=== PATIENT | male | born 1975 | race Caucasian/White ===

== ENCOUNTER 2016-10-24 11:35 | Emergency (ER) | payer OTHER ==
[~2016-10-24] VITALS: Ht 162.6 cm; Wt 69.1 kg
[~2016-10-24 11:35] MED LIST: CLC100 PO; [UNRECOGNIZED DRUG - CODE]
[2016-10-24 11:38] VITALS: TEMP 36.8; Ht 162.6 cm; Wt 69.1 kg
[2016-10-24] MEDS ORDERED: SODIUM CHLORIDE 0.9% 1000ML 1,000 ML IV STA (12:19)
[2016-10-24 12:29] LABS: BASO % 0.1 %; BASO ABS # 0.01 K/uL (0-0.2); COMPLETE YES; EOS % 0.1 %; HEMATOCRIT 46.3 % (42-52); IG% 0.2 %; LYMPH % 12.8 %; LYMPH ABS # 1.13 K/uL (1.2-3.4); MEAN CELL VOLUME 82.1 fL (80-100); MEAN CORPUSCULAR HEMOGLOBIN 29.4 pg (25-34); MEAN CORPUSCULAR HGB CONC 35.9 g/dl (32-36); MEAN PLATELET VOLUME 8.8 fL (7.4-10.4); NEUT % 80.8 %; PLATELET COUNT 272 K/uL (130-400); RED BLOOD COUNT 5.64 M/uL (4.7-6.1)
[2016-10-24 12:36] LABS: BLOOD UREA NITROGEN 12 mg/dl (7-18); BUN/CREATININE RATIO 12.1 (10-20); CALCIUM 9.5 mg/dl (8.5-10.1); CARBON DIOXIDE 27 mmol/L (21-32); CHLORIDE 98 mmol/L (98-107); CREATININE 0.95 mg/dl (0.60-1.40); GLUCOSE 99 mg/dl (70-99); POTASSIUM 3.6 mmol/L (3.5-5.1); SODIUM 133 mmol/L (136-145)
[2016-10-24] MEDS ORDERED: ONDANSETRON INJ 2 MG/ML 2 ML VIAL IV STA (12:39)
--- NOTE | 2016-10-24 12:40 | EMERGENCY ROOM VISIT NOTE ---
History Report prepared by Quynh: Vlad Rader Under the Supervision of: Dr. Joel Qureshi M.D. First contact with patient: 12:04 Chief Complaint: CHEST PAIN Stated Complaint: CHEST PAIN, PAIN UNDER LT ARM, STOMACH PAIN Nursing Triage Summary: pt reports L side cp since Mon. with radiation to back and L arm History of Present Illness The patient is a 41 year old male who presents to the Emergency Room with complaints of constant, sharp, left upper quadrant abdominal pain beginning two days ago. He currently rates his discomfort an 8/10 in severity. The patient states that he was working when the pain started, and it has radiated to his left shoulder and the left part of his chest. The patient states that he has been experiencing nausea, vomiting, and black pellet-like stool. He reports that he only vomits after he eats, and it does not alleviated his symptoms. The patient notes that he has been having 10-12 bowel movements a day, and they look like black pellets. He states that he is short of breath. The patient reports that rest is the only thing that makes him feel better. He denies long trips, recent hospitalization, taking medication, and chest pain when breathing. Source of History: patient Onset: two days ago Position: abdomen (LUQ) Symptom Intensity: 8/10 Quality: sharp Timing: constant Modifying Factors (Relieving): rest Associated Symptoms: + chest pain (left), + SOB, + nausea, + vomiting Note: Associated symptoms: left shoulder pain and black pellet-like stool Denies: chest pain when breathing Review of Systems See HPI for pertinent positives & negatives. A total of 10 systems reviewed and were otherwise negative. Past Medical & Surgical Medical Problems: (1) No Known Active Medical Problems Family History Patient reports no known family medical history. Social History Smoking Status: Never Smoker Current/Historical Medications Scheduled Omeprazole (Omeprazole), 1 TAB PO DIRECTED Ondasetron Odt (Zofran Odt), 4-8 MG SL Q6H Scheduled PRN Oxycodone Immediate Rel Tab (Roxicodone Ir), 1-2 TAB PO Q4H PRN for Severe Pain Allergies Coded Allergies: No Known Allergies (Unverified , 10/24/16) Physical Exam Vital Signs Date Time Temp Pulse Resp B/P (MAP) Pulse Ox O2 Delivery O2 Flow Rate FiO2 10/24/16 15:03 88 18 147/92 99 10/24/16 13:56 97 18 140/88 99 Room Air 10/24/16 12:49 86 18 167/107 96 Room Air 10/24/16 12:41 85 10/24/16 11:38 36.8 96 20 159/103 98 Room Air Physical Exam GENERAL: Patient is uncomfortable appearing and in moderate distress. HEENT: No acute trauma, normocephalic atraumatic, mucous membranes moist, no nasal congestion, no scleral icterus. NECK: No stridor, no adenopathy, no meningismus, trachea is midline. LUNGS: No dyspnea. Clear to auscultation and equal bilaterally. No wheeze, no rhonchi. HEART: Regular rate and rhythm. No murmurs, rubs, gallops appreciated. ABDOMEN: Soft, left upper quadrant and left lower quadrant are tender to palpation, bowel sounds positive, no masses appreciated, no peritonitis. BACK: No midline tenderness, no CVA tenderness EXTREMITIES: Normal motion all extremities, no cyanosis, no edema. NEUROLOGIC: Alert and oriented, no acute motor or sensory deficits, no focal weakness, cranial nerves grossly intact. SKIN: Excoriation to the skin, no jaundice, no diaphoresis. Medical Decision & Procedures ER Provider Diagnostic Interpretation: Radiology results and stated below per my review and radiologist interpretation: CHEST ONE VIEW PORTABLE CLINICAL HISTORY: Left chest pain pain COMPARISON STUDY: No previous studies for comparison. FINDINGS: The bones soft tissues and hemidiaphragms are normal. The cardiomediastinal silhouette is normal. The lungs are clear. The pulmonary vasculature is normal. IMPRESSION: Negative chest. The above report was generated using voice recognition software. It may contain grammatical, syntax or spelling errors. Electronically signed by: Dale Hanson M.D. 10/24/2016 12:39 PM Dictated Date/Time: 10/24/2016 12:39 PM (CHEST FOR PE) ANGIO WITH CLINICAL HISTORY: 41 years-old Male presenting with chest pain, pain under left arm, clinical concern for pulmonary embolus. TECHNIQUE: Multidetector CT angiography of the chest was performed after administration of intravenous contrast. 3-D volumetric and maximum intensity projection (MIP) images were subsequently reconstructed for review. IV contrast: 121 mL of Optiray 320. A dose lowering technique was used consistent with the principles of ALARA (as low as reasonably achievable). COMPARISON: None. CT DOSE (mGy.cm): The estimated cumulative dose is 751.05 mGycm. FINDINGS: Leather Cleaner topogram: Unremarkable. Pulmonary vasculature: The study is adequate for assessment of the pulmonary vascular tree. No filling defect within the pulmonary arteries to suggest embolus. Main pulmonary artery not enlarged. No flattening of the interventricular septum. No intracardiac filling defect. Remaining chest: On soft tissue windows, bilateral gynecomastia. Thyroid and thoracic inlet normal. No axillary, supraclavicular, mediastinal, or hilar lymphadenopathy. Three-vessel arch. Mild multichamber enlargement of the heart. No pericardial or pleural effusion. Upper abdomen unremarkable. On lung windows, dependent groundglass opacities at the lung bases, possibly atelectasis. 4 mm solid subpleural pulmonary nodule in the right upper lobe (series 2 image 40). Airways patent. On bone windows, osseous structures normal. IMPRESSION: 1. No evidence of pulmonary embolus. No convincing evidence of acute cardiopulmonary disease. Bibasilar atelectasis suspected. 2. Solid 4 mm pulmonary nodule. Follow-up per Fleischner Society recommendations below. Please refer to below summary of Fleischner Society 2017 recommendations for follow-up of incidental CT nodules (H Sonia et al. Guidelines for management of incidental pulmonary nodules detected on CT images: From the Fleischner Society 2017. Radiology 2017; 284: 228-243.) SOLID NODULES Single nodule; size <6 mm * Low risk patients: No routine follow-up * High risk patients: Optional CT at 12 months Single nodule; size 6-8 mm * Low risk patients: CT at 6-12 months, then consider CT at 18-24 months * High risk patients: CT at 6-12 months, then at 18-24 months Single nodule; size >8 mm * Either low or high risk patients: Considered CT at 3 months, PET/CT, or tissue sampling Multiple nodules; size <6 mm * Low risk patients: No routine follow up * High risk patients: Optional CT at 12 months Multiple nodules; size 6-8 mm * Low risk patients: CT at 3-6 months, then consider CT at 18-24 months * High risk patients: CT at 3-6 months, then at 18-24 months Multiple nodules; size >8 mm * Low risk patients: CT at 3-6 months, then consider at 18-24 months * High risk patients: CT at 3-6 months, then at 18-24 months Note: These guidelines apply to incidental nodules. These guidelines did not apply to patients younger than 35 years, immunocompromised patients, or patients with cancer. * Low risk patients: Minimal or absent history of smoking and/or other known risk factors * High risk patients: History of smoking, exposure to other carcinogens, emphysema, fibrosis, upper lobe location, family history of lung cancer, etc. * If a nodule up to 8 mm is partly solid or is ground glass further follow-up is required after 24 months to exclude possible slow growing adenocarcinoma SUBSOLID NODULES Single ground-glass nodule * Nodule size < 6 mm: No routine follow-up * Nodule size > or = 6 mm: CT at 6-12 months to confirm persistence, then CT every 2 years until 5 years Single part-solid nodule * Nodule size < 6 mm: No routine follow-up * Nodules size > or = 6 mm: CT at 3-6 months to confirm persistence. If unchanged and solid component remains < 6 mm, annual CT should be performed for 5 years Multiple nodules * Nodule size < 6 mm: CT at 3-6 months. If stable, consider CT at 2 and 4 years. * Nodules size > or = 6 mm: CT at 3-6 months. Subsequent management based on the most suspicious nodule(s) Electronically signed by: Adria Adam M.D. 10/24/2016 2:02 PM Dictated Date/Time: 10/24/2016 1:55 PM ABD/PELVIS IV CONTRAST ONLY HISTORY: 41 years-old Male LUQ pain, vomiting COMPARISON: CT 01/28/2009 TECHNIQUE: Multiple axial CT images of the abdomen and pelvis were obtained following the intravenous administration of 121 mL Optiray 320. A dose lowering technique was used consistent with the principals of LINUS. FINDINGS: There is only minimal dependent bibasilar atelectasis. There is no pneumoperitoneum. Inferior cardiac chambers are unremarkable. There is a mildly low attenuating 1.2 x 1.0 cm low attenuating lesion of the subserosal medial left hepatic lobe with apparent discontinuous nodular peripheral enhancement suggesting an angioma. This was also noted on comparison study 01/28/2009. The spleen, gallbladder, pancreas and adrenal glands are within normal limits. Bilateral kidneys are within normal limits. Bilateral ureters and urinary bladder appear to be within normal limits. Prostate again appears mildly heterogeneous and measures within the limits of normal at 4.6 cm transversely. The abdominal aorta is normal in both course and caliber. There is no bulky retroperitoneal adenopathy. Portal vein is patent. There is moderate circumferential wall thickening of the distal esophagus with additional diffuse wall thickening and mucosal hyperemia involving the distal gastric body and antrum. There is no significant surrounding inflammatory changes identified. There is mild distention of the proximal duodenum without evidence of obstruction. Several scattered loops of nondilated fluid-filled small bowel are seen. Scattered noninflamed colonic diverticula are seen. There is collapse of the sigmoid colon without significant inflammatory changes. The appendix is air-filled and noninflamed. Soft tissues are unremarkable. Bones are intact. IMPRESSION: 1. Moderate wall thickening of the distal esophagus, distal gastric body and antrum is suspicious for esophagitis with gastritis. This could be further violated with endoscopy. No evidence of obstruction. 2. Nondilated fluid-filled loops of small bowel throughout the abdomen are nonspecific and may reflect ileus or enteritis without obstruction. 3. Normal appendix. 4. Probable hemangioma of the subserosal medial left hepatic lobe, also noted on study dated 01/28/2009. The above report was generated using voice recognition software. It may contain grammatical, syntax or spelling errors. Electronically signed by: Tonny Kumari M.D. 10/24/2016 2:05 PM Dictated Date/Time: 10/24/2016 1:56 PM Laboratory Results 10/24/16 12:08 Red Blood Count 5.64, Mean Corpuscular Volume 82.1, Mean Corpuscular Hemoglobin 29.4, Mean Corpuscular Hemoglobin Concent 35.9, Mean Platelet Volume 8.8, Neutrophils (%) (Auto) 80.8, Lymphocytes (%) (Auto) 12.8, Monocytes (%) (Auto) 6.0, Eosinophils (%) (Auto) 0.1, Basophils (%) (Auto) 0.1, Neutrophils # (Auto) 7.10, Lymphocytes # (Auto) 1.13, Monocytes # (Auto) 0.53, Eosinophils # (Auto) 0.01, Basophils # (Auto) 0.01 10/24/16 12:08 Test 10/24/16 12:08 10/24/16 13:53 White Blood Count 8.80 K/uL (4.8-10.8) Red Blood Count 5.64 M/uL (4.7-6.1) Hemoglobin 16.6 g/dL (14.0-18.0) Hematocrit 46.3 % (42-52) Mean Corpuscular Volume 82.1 fL (80-100) Mean Corpuscular Hemoglobin 29.4 pg (25-34) Mean Corpuscular Hemoglobin Concent 35.9 g/dl (32-36) Platelet Count 272 K/uL (130-400) Mean Platelet Volume 8.8 fL (7.4-10.4) Neutrophils (%) (Auto) 80.8 % Lymphocytes (%) (Auto) 12.8 % Monocytes (%) (Auto) 6.0 % Eosinophils (%) (Auto) 0.1 % Basophils (%) (Auto) 0.1 % Neutrophils # (Auto) 7.10 K/uL (1.4-6.5) Lymphocytes # (Auto) 1.13 K/uL (1.2-3.4) Monocytes # (Auto) 0.53 K/uL (0.11-0.59) Eosinophils # (Auto) 0.01 K/uL (0-0.5) Basophils # (Auto) 0.01 K/uL (0-0.2) RDW Standard Deviation 36.8 fL (36.4-46.3) RDW Coefficient of Variation 12.3 % (11.5-14.5) Immature Granulocyte % (Auto) 0.2 % Immature Granulocyte # (Auto) 0.02 K/uL (0.00-0.02) D-Dimer 610 ug/L FEU (0-500) Anion Gap 8.0 mmol/L (3-11) Est Creatinine Clear Calc Drug Dose 87.5 ml/min Estimated GFR () 116.4 Estimated GFR (Non- 100.4 BUN/Creatinine Ratio 12.1 (10-20) Calcium Level 9.5 mg/dl (8.5-10.1) Total Bilirubin 1.9 mg/dl (0.2-1) Direct Bilirubin 0.3 mg/dl (0-0.2) Aspartate Amino Transf (AST/SGOT) 13 U/L (15-37) Alanine Aminotransferase (ALT/SGPT) 38 U/L (12-78) Alkaline Phosphatase 80 U/L (45-117) Troponin I < 0.015 ng/ml (0-0.045) Total Protein 8.6 gm/dl (6.4-8.2) Albumin 4.2 gm/dl (3.4-5.0) Lipase 167 U/L (73-393) Urine Color YELLOW Urine Appearance CLEAR (CLEAR) Urine pH 7.0 (4.5-7.5) Urine Specific [place] 1.017 (1.000-1.030) Urine Protein NEG (NEG) Urine Glucose (UA) NEG (NEG) Urine Ketones 2+ (NEG) Urine Occult Blood TRACE (NEG) Urine Nitrite NEG (NEG) Urine Bilirubin NEG (NEG) Urine Urobilinogen NEG (NEG) Urine Leukocyte Esterase NEG (NEG) Urine WBC (Auto) 0 /hpf (0-5) Urine RBC (Auto) 0-4 /hpf (0-4) Urine Hyaline Casts (Auto) 0 /lpf (0-5) Urine Epithelial Cells (Auto) 0-5 /lpf (0-5) Urine Bacteria (Auto) NEG (NEG) Laboratory results as reviewed by me. Medications Administered Medications (Trade) Dose Ordered Sig/Kevin Route Start Time Stop Time Status Last Admin Dose Admin Sodium Chloride 1,000 ml @ 999 mls/hr Q1H1M STAT IV 10/24/16 12:19 10/24/16 13:19 DC 10/24/16 12:37 999 MLS/HR Ondansetron HCl (Zofran Inj) 4 mg NOW STAT IV 10/24/16 12:39 10/24/16 12:40 DC 10/24/16 12:48 4 MG Hydromorphone HCl (Dilaudid Inj) 1 mg NOW STAT IV 10/24/16 13:12 10/24/16 13:13 DC 10/24/16 13:32 1 MG Ranitidine HCl (zANTac SYRUP) 150 mg NOW ONCE PO 10/24/16 14:45 10/24/16 14:46 DC 10/24/16 14:55 150 MG Al Hydroxide/Mg Hydroxide (Maalox Susp) 30 ml STK-MED ONCE .ROUTE 10/24/16 14:40 10/24/16 14:41 DC 7/26/17 14:55 30 ML Lidocaine HCl (Viscous Lidocaine 2% Soln) 20 ml STK-MED ONCE .ROUTE 10/24/16 14:40 10/24/16 14:41 DC 10/24/16 14:55 20 ML ECG Indication: chest pain Rate (beats per minute): 74 Rhythm: normal sinus Findings: no acute ischemic change, no ectopy ED Course 1129: The patient was evaluated in room B03B. A complete history and physical exam was performed. 1219: Ordered Sodium Chloride 1000 ml @ 999 mls/hr IV 1237: The patient is currently vomiting. 1239: Ordered Zofran Inj 4mg IV 1312: Ordered Dilaudid Inj 1 mg IV 1316: I updated the patient of his lab findings. I discussed with him the need for a CT due to his elevated d-dimer. After explaining the risks and benefits of the CT scan, he consented. After palpating his calves again, there is no tenderness. 1409: I reevaluated the patient, and he is no longer nauseous. His pain is much better, and he is okay with waiting on GI to be evaluated. 1417: I discussed the patients case with Dr. Thurston, GI. She suggested admission to the hospital for possible endoscopy, IV PPI, and possible MG tube. However if patient would like to be discharged he should be discharged on PPI. 1419: Reevaluated the patient. I had a prolonged discussion of options, and he does not wish to be admitted to the hospital. Discussed results and discharge instructions: he verbalized understanding and agreement. The patient is ready for discharge when he receives his medication. 1440: Ordered Lidocaine HCl 20ml .ROUTE, Maalox Susp 30ml .ROUTE 1445: Ordered Ranitidine HCl 150mg PO Medical Decision Differential: Cholecystitis, Gallbladder disfunction, Hepatic Disfunction, Gastritis/PUD, Pancreatitis, ACS, PE, Aortic Pathology, amongst other pathologies entertained. Very pleasant 41 yr old Sabian[employer] male with LUQ pain radiating to left chest and left shoulder. Worse with LUQ palpation and clearly uncomfortable with deep inspiration. Periodic vomiting. Given Zofran/Dilaudid/Nss with much improvement. Lab with elevated Dimer thus given symptoms felt that CT PE indicated, however as getting dye load, clear LUQ TTP and vomiting felt that must included abdominal component on CT. CT reveals esophagitis, gastritis and ileus/enteritis. I reviewed this with GI. I had prolonged discussion with patient regarding options and he very much prefers outpatient management. I made clear that I felt inpatient would be usual approach. We will treat aggressively with BID Omeprazole, Anti-emetics and PRN pain medications. Stressed low acid diet and need to RTED immediately if worsening. Advised Endoscopy as outpatient which he states he will discuss with his PCP. Consults Time Called: 1407 Consulting Physician: JASMINA Díaz Returned Call: [phone] I discussed the patients case with JASMINA Díaz. She suggested admission to the hospital for possible endoscopy, IV PPI, and possible MG tube. However if patient would like to be discharged he should be discharged on PPI. Impression Primary Impression: Esophagitis Additional Impressions: Gastritis Ileus Scribe Attestation The scribe's documentation has been prepared under my direction and personally reviewed by me in its entirety. I confirm that the note above accurately reflects all work, treatment, procedures, and medical decision making performed by me. Departure Information Dispostion Home / Self-Care Prescriptions Oxycodone Immediate Rel Tab (ROXICODONE IR) 5 Mg Tab 1-2 TAB PO Q4H Y for Severe Pain, #10 TAB Prov: Joel Qureshi M.D. 10/24/16 Ondasetron Odt (ZOFRAN ODT) 4 Mg Tab 4-8 MG SL Q6H for Nausea, #20 TAB Prov: Joel Qureshi M.D. 10/24/16 Omeprazole (OMEPRAZOLE) 20 Mg Tab 1 TAB PO DIRECTED, #50 TAB 1 Refill Take one tablet twice daily for the next 10 days, then once daily. Prov: Joel Qureshi M.D. 10/24/16 Referrals Eddie García M.D. (PCP) Eliot Aparicio D.O. Forms HOME CARE DOCUMENTATION FORM, IMPORTANT VISIT INFORMATION Patient Instructions ED Gastritis, My [facility] Additional Instructions You have received a narcotic pain medication prescription. These medications may cause drowsiness and should not be used with other sedative medications. Do not operate machinery, drink alcohol, perform dangerous activities, nor make important decisions after taking these medications. senior living use or inappropriate use may lead to addiction. Problem Qualifiers
[2016-10-24 12:41] LABS: ALKALINE PHOSPHATASE 80 U/L (45-117); ALT/SGPT 38 U/L (12-78); AST/SGOT 13 U/L (15-37)
[2016-10-24] MEDS ORDERED: HYDROmorphone INJ 1 MG/ML SYR IV STA (13:12)
[2016-10-24] MEDS ORDERED: OPTIRAY 320 IV PRN (13:15)
--- NOTE | 2016-10-24 14:03 | DIAGNOSTIC IMAGING REPORT ---
(CHEST FOR PE) ANGIO WITH CLINICAL HISTORY: 41 years-old Male presenting with chest pain, pain under left arm, clinical concern for pulmonary embolus. TECHNIQUE: Multidetector CT angiography of the chest was performed after administration of intravenous contrast. 3-D volumetric and maximum intensity projection (MIP) images were subsequently reconstructed for review. IV contrast: 121 mL of Optiray 320. A dose lowering technique was used consistent with the principles of ALARA (as low as reasonably achievable). COMPARISON: None. CT DOSE (mGy.cm): The estimated cumulative dose is 751.05 mGycm. FINDINGS: Proctologist topogram: Unremarkable. Pulmonary vasculature: The study is adequate for assessment of the pulmonary vascular tree. No filling defect within the pulmonary arteries to suggest embolus. Main pulmonary artery not enlarged. No flattening of the interventricular septum. No intracardiac filling defect. Remaining chest: On soft tissue windows, bilateral gynecomastia. Thyroid and thoracic inlet normal. No axillary, supraclavicular, mediastinal, or hilar lymphadenopathy. Three-vessel arch. Mild multichamber enlargement of the heart. No pericardial or pleural effusion. Upper abdomen unremarkable. On lung windows, dependent groundglass opacities at the lung bases, possibly atelectasis. 4 mm solid subpleural pulmonary nodule in the right upper lobe (series 2 image 40). Airways patent. On bone windows, osseous structures normal. IMPRESSION: 1. No evidence of pulmonary embolus. No convincing evidence of acute cardiopulmonary disease. Bibasilar atelectasis suspected. 2. Solid 4 mm pulmonary nodule. Follow-up per Fleischner Society recommendations below. Please refer to below summary of Fleischner Society 2017 recommendations for follow-up of incidental CT nodules (H Sonia et al. Guidelines for management of incidental pulmonary nodules detected on CT images: From the Fleischner Society 2017. Radiology 2017; 284: 228-243.) SOLID NODULES Single nodule; size <6 mm * Low risk patients: No routine follow-up * High risk patients: Optional CT at 12 months Single nodule; size 6-8 mm * Low risk patients: CT at 6-12 months, then consider CT at 18-24 months * High risk patients: CT at 6-12 months, then at 18-24 months Single nodule; size >8 mm * Either low or high risk patients: Considered CT at 3 months, PET/CT, or tissue sampling Multiple nodules; size <6 mm * Low risk patients: No routine follow up * High risk patients: Optional CT at 12 months Multiple nodules; size 6-8 mm * Low risk patients: CT at 3-6 months, then consider CT at 18-24 months * High risk patients: CT at 3-6 months, then at 18-24 months Multiple nodules; size >8 mm * Low risk patients: CT at 3-6 months, then consider at 18-24 months * High risk patients: CT at 3-6 months, then at 18-24 months Note: These guidelines apply to incidental nodules. These guidelines did not apply to patients younger than 35 years, immunocompromised patients, or patients with cancer. * Low risk patients: Minimal or absent history of smoking and/or other known risk factors * High risk patients: History of smoking, exposure to other carcinogens, emphysema, fibrosis, upper lobe location, family history of lung cancer, etc. * If a nodule up to 8 mm is partly solid or is ground glass further follow-up is required after 24 months to exclude possible slow growing adenocarcinoma SUBSOLID NODULES Single ground-glass nodule * Nodule size < 6 mm: No routine follow-up * Nodule size > or = 6 mm: CT at 6-12 months to confirm persistence, then CT every 2 years until 5 years Single part-solid nodule * Nodule size < 6 mm: No routine follow-up * Nodules size > or = 6 mm: CT at 3-6 months to confirm persistence. If unchanged and solid component remains < 6 mm, annual CT should be performed for 5 years Multiple nodules * Nodule size < 6 mm: CT at 3-6 months. If stable, consider CT at 2 and 4 years. * Nodules size > or = 6 mm: CT at 3-6 months. Subsequent management based on the most suspicious nodule(s) Electronically signed by: Adria Adam M.D. 10/24/2016 2:02 PM Dictated Date/Time: 10/24/2016 1:55 PM
--- NOTE | 2016-10-24 14:07 | DIAGNOSTIC IMAGING REPORT ---
ABD/PELVIS IV CONTRAST ONLY HISTORY: 41 years-old Male LUQ pain, vomiting COMPARISON: CT 01/28/2009 TECHNIQUE: Multiple axial CT images of the abdomen and pelvis were obtained following the intravenous administration of 121 mL Optiray 320. A dose lowering technique was used consistent with the principals of LINUS. FINDINGS: There is only minimal dependent bibasilar atelectasis. There is no pneumoperitoneum. Inferior cardiac chambers are unremarkable. There is a mildly low attenuating 1.2 x 1.0 cm low attenuating lesion of the subserosal medial left hepatic lobe with apparent discontinuous nodular peripheral enhancement suggesting an angioma. This was also noted on comparison study 01/28/2009. The spleen, gallbladder, pancreas and adrenal glands are within normal limits. Bilateral kidneys are within normal limits. Bilateral ureters and urinary bladder appear to be within normal limits. Prostate again appears mildly heterogeneous and measures within the limits of normal at 4.6 cm transversely. The abdominal aorta is normal in both course and caliber. There is no bulky retroperitoneal adenopathy. Portal vein is patent. There is moderate circumferential wall thickening of the distal esophagus with additional diffuse wall thickening and mucosal hyperemia involving the distal gastric body and antrum. There is no significant surrounding inflammatory changes identified. There is mild distention of the proximal duodenum without evidence of obstruction. Several scattered loops of nondilated fluid-filled small bowel are seen. Scattered noninflamed colonic diverticula are seen. There is collapse of the sigmoid colon without significant inflammatory changes. The appendix is air-filled and noninflamed. Soft tissues are unremarkable. Bones are intact. IMPRESSION: 1. Moderate wall thickening of the distal esophagus, distal gastric body and antrum is suspicious for esophagitis with gastritis. This could be further violated with endoscopy. No evidence of obstruction. 2. Nondilated fluid-filled loops of small bowel throughout the abdomen are nonspecific and may reflect ileus or enteritis without obstruction. 3. Normal appendix. 4. Probable hemangioma of the subserosal medial left hepatic lobe, also noted on study dated 01/28/2009. The above report was generated using voice recognition software. It may contain grammatical, syntax or spelling errors. Electronically signed by: Tonny Kumari M.D. 10/24/2016 2:05 PM Dictated Date/Time: 10/24/2016 1:56 PM
[2016-10-24 14:26] LABS: MANUAL MICROSCOPIC REQUIRED? NO; REVIEW REQ? NO; URINE APPEARANCE CLEAR (CLEAR); URINE BILIRUBIN NEG (NEG); URINE COLOR YELLOW; URINE EPITHELIAL CELL AUTO 0-5 /lpf (0-5); URINE NITRITE NEG (NEG); URINE SPECIFIC GRAVITY 1.017 (1.000-1.030); UROBILINOGEN NEG (NEG); ZZUR CULT IF INDIC CLEAN CATCH NO
[2016-10-24] MEDS ORDERED: GI COCKTAIL PO STA (14:33)
[2016-10-24] MEDS ORDERED: OXYC1TAB3 PO (14:39)
[2016-10-24] MEDS ORDERED: ONDA4TAB10 SL (14:39)
[2016-10-24] MEDS ORDERED: OMEP20TA PO (14:39)
[2016-10-24] MEDS ORDERED: LIDOCAINE HCL 2% VISC SOLN 20 ML UDC ONE (14:40)
[2016-10-24] MEDS ORDERED: ALUMINUM/MAGNESIUM SUSP 30 ML UDC ONE (14:40)
[2016-10-24] MEDS ORDERED: RANITIDINE HCL SYRUP 150 MG/10 ML UDC PO ONE (14:45)
[2016-10-24 15:03] VITALS: BP 147/92; PULSE 88; O2SAT 99
== END 2016-10-24 15:04 | disposition home or self-care (01) ==
LOC: C.EDB 11:38
DX: K20.9 Esophagitis, unspecified (principal); K29.70 Gastritis, unspecified, without bleeding; K56.7 Ileus, unspecified; Z79.899 Other long term (current) drug therapy

== ENCOUNTER → 2016-11-09 | Day surgery (SDC) | payer OTHER ==
[~2016-11-09] VITALS: Ht 165.1 cm; Wt 70.4 kg
[~2016-11-09] MED LIST changes: -CLC100 PO; +FENTANYL CITRATE INJ 50 MCG/1 ML 2 ML VIAL ONE; +LIDOCAINE HCL 2% 2 ML VIAL (20MG/ML) ONE; +MIDAZOLAM HCL 1 MG/ML 2ML VIAL ONE; +OMEP20TA PO; +ONDA4TAB10 SL; +OXYC1TAB3 PO; +PROPOFOL IV EMULSION 10 MG/ML 20 ML VIAL IV ONE; +SODIUM CHLORIDE 0.9% 500ML 500 ML IV ONE; -[UNRECOGNIZED DRUG - CODE]
[2016-11-09 08:09] VITALS: Ht 165.1 cm; Wt 70.4 kg
--- NOTE | 2016-11-09 08:36 | Endo History and Physical ---
History & Physical Date of Service: Nov 09, 2016. Chief Complaint: REFLUX, INFLAMMATION IN STOMACH Referring Physician: DR RIVERA History of Present Illness 41 yo CM who presents for EGD secondary to GERD and gastritis. Past Surgical History Hx Cardiac Surgery: No Hx Internal Defibrillator: No Hx Pacemaker: No Hx Abdominal Surgery: No Hx of Implantable Prosthesis: No Hx Post-Op Nausea and Vomiting: No Hx Cancer Surgery: No Hx Thoracic Surgery: No Hx Orthopedic: Yes (RIGHT KNEE) Hx Urinary Tract Surgery: No Social History Smoking Status: Never Smoker Hx Substance Use: No Hx Alcohol Use: No Allergies Coded Allergies: No Known Allergies (Unverified , 11/09/16) Current Medications Reported Home Medications Medications Dose Route/Sig Max Daily Dose Days Date Category Dose Instructions Omeprazole 20 Mg Tab 1 Tab PO DIRECTED 10/24/16 Rx Take one tablet twice daily for the next 10 days, then once daily. Vital Signs Weight (Kilograms): 70.4 Height (Feet): 5 Height (Inches): 5 Date Time Temp Pulse Resp B/P (MAP) Pulse Ox O2 Delivery O2 Flow Rate FiO2 11/09/16 08:21 36.6 68 16 131/82 (98) 100 Room Air Physical Exam General Appearance: WD/WN, no apparent distress Respiratory/Chest: Auscultation: breath sounds normal Cardiovascular: Heart Auscultation: RRR Abdomen: Bowel Sounds: normal Inspection & Palpation: soft, non-distended, no tenderness, guarding & rebound Assessment and Plan Assessment: 41 yo CM who presents for EGD secondary to GERD and gastritis. Plan: Proceed with EGD.
--- NOTE | 2016-11-09 08:55 | Discharge Instructions ---
Endoscopy Patient Instructions Date / Procedure(s) Performed Nov 09, 2016. EGD Allergy Information Coded Allergies: No Known Allergies (Unverified , 11/09/16) Discharge Date / Findings Nov 09, 2016. Gastric ulcers s/p biopsies of gastric antrum to evaluate for H. pylori Hiatal hernia Schatzki's ring s/p dilation to 20mm Medication Instructions OK to resume all medications today as prescribed Avoid NSAID's as they may cause worsening symptoms. OK to use Tylenol for pain control Reported Home Medications Medications Dose Route/Sig Max Daily Dose Days Date Category Dose Instructions Omeprazole 20 Mg Tab 1 Tab PO DIRECTED 10/24/16 Rx Take one tablet twice daily for the next 10 days, then once daily. Provider Instructions Activity Restrictions - No exercising or heavy lifting for 24 hours. - Do not drink alcohol the day of the procedure. - Do not drive a car or operate machinery until the day after the procedure. - Do not make any important decisions or sign important papers in 24 hours after the procedure. Following Day: - Return to full activity which may include returning to work/school. Diet Start your diet with liquids and light foods (jello, soup, juice, toast). Then eat your usual diet if not nauseated. Treatment For Common After Affects For mild abdominal pain, bloating, or excessive gas: - Rest - Eat lightly - Lie on right side Follow-Up Information Follow-up with DR RIVERA as scheduled Anesthesia Information What You Should Know You have had a procedure that required some medicine to reduce anxiety and discomfort. This treatment is called moderate sedation. After receiving the treatment, you may be sleepy, but you will be able to breathe on your own. The effects of the treatment may last for several hours. Follow these instructions along with Activity/Diet recommendations noted above: * Do NOT do anything where dizziness or clumsiness would be dangerous. * Rest quietly at home today, then you can be up and about tomorrow. * Have a responsible person stay with you the rest of today. * You may have had an I.V. today. If so, you may take the dressing off later today. Recommendations Call your doctor if: * Trouble breathing * Continuous vomiting for more than 24 hours * Temperature above 101 degrees * Severe abdominal pain or bloating * Pain not relieved by pain medicine ordered * There is increased drainage or redness from any incision * A large amount of rectal bleeding greater than 2-3 tablespoons. (If you had a polyp/s removed or have hemorrhoids, a small amount of blood - from the rectum is to be expected.) * You have any unanswered questions or concerns. IN THE EVENT OF A SERIOUS EMERGENCY, GO TO THE NEAREST EMERGENCY ROOM Your discharge instructions were prepared by provider Eliot Aparicio. Patient Instructions Signature Page Alejandro Benjamin Patient (or Guardian) Signature/Date: I have read and understand the instructions given to me by my caregivers. Caregiver/RN/Doctor Signature/Date: The above-named patient and/or guardian has received patient instructions on this date. + Original Patient Signature Page (only) stays with chart. Please make copy for patient.
--- NOTE | 2016-11-09 09:05 | GI REPORT ---
Procedure Date: 11/09/2016 8:19 AM Procedure: Upper GI endoscopy Indications: Epigastric abdominal pain, Esophageal reflux Medicines: Monitored Anesthesia Care Complications: No immediate complications. Estimated Blood Loss: Estimated blood loss: none. Procedure: Pre-Anesthesia Assessment: - Prior to the procedure, a History and Physical was performed, and patient medications and allergies were reviewed. The patient's tolerance of previous anesthesia was also reviewed. The risks and benefits of the procedure and the sedation options and risks were discussed with the patient. All questions were answered, and informed consent was obtained. Prior Anticoagulants: The patient has taken no previous anticoagulant or antiplatelet agents. ASA Grade Assessment: II - A patient with mild systemic disease. After reviewing the risks and benefits, the patient was deemed in satisfactory condition to undergo the procedure. After obtaining informed consent, the endoscope was passed under direct vision. Throughout the procedure, the patient's blood pressure, pulse, and oxygen saturations were monitored continuously. The scope was introduced through the mouth, and advanced to the second part of duodenum. The upper GI endoscopy was accomplished without difficulty. The patient tolerated the procedure well. Findings: A mild Schatzki ring (acquired) was found at the gastroesophageal junction. A TTS dilator was passed through the scope. Dilation with an 18-19-20 mm balloon (to a maximum balloon size of 20 mm) dilator was performed. The dilation site was examined and showed no change. A small hiatus hernia was present. Four non-bleeding cratered gastric ulcers with no stigmata of bleeding were found in the gastric antrum. The largest lesion was 10 mm in largest dimension. Biopsies were taken with a cold forceps for Helicobacter pylori testing. The examined duodenum was normal. Impression: - Mild Schatzki ring. Dilated. - Small hiatus hernia. - Non-bleeding gastric ulcers with no stigmata of bleeding. Biopsied. - Normal examined duodenum. Recommendation: - Resume previous diet. - Continue present medications. - Await pathology results. - Return to primary care physician as previously scheduled. Eliot Aparicio DO 11/09/2016 9:05:46 AM This report has been signed electronically. Note Initiated On: 11/09/2016 8:19 AM I attest to the content of the Intraoperative Record and orders documented therein, exceptions below
--- NOTE | 2016-11-09 09:25 | Anesthesiology Progress Note ---
Anesthesia Post Op Note Date & Time Nov 09, 2016 at 09:25 Vital Signs Pain Intensity: 4 Vital Signs Past 12 Hours Date Time Temp Pulse Resp B/P (MAP) Pulse Ox O2 Delivery O2 Flow Rate FiO2 11/09/16 09:15 66 20 127/79 (95) 98 Room Air 11/09/16 09:00 80 18 117/70 (86) 98 Room Air 11/09/16 08:21 36.6 68 16 131/82 (98) 100 Room Air Notes Mental Status: alert / awake / arousable, participated in evaluation Pt Amnestic to Procedure: Yes Nausea / Vomiting: adequately controlled Pain: adequately controlled Airway Patency, RR, SpO2: stable & adequate BP & HR: stable & adequate Hydration State: stable & adequate Anesthetic Complications: no major complications apparent
[2016-11-09 09:30] VITALS: BP 120/83; PULSE 79; O2SAT 97
== END | disposition home or self-care (01) ==
LOC: C.GI 07:50
PROVIDERS: ATTEND Internal Medicine
DX: K22.2 Esophageal obstruction (principal); K29.60 Other gastritis without bleeding; K21.9 Gastro-esophageal reflux disease without esophagitis; K44.9 Diaphragmatic hernia without obstruction or gangrene; K25.9 Gastric ulcer, unspecified as acute or chronic, without hemorrhage or perforation

== ENCOUNTER 2017-02-25 09:35 | Emergency (ER) | payer OTHER ==
[~2017-02-25] VITALS: Ht 165.1 cm; Wt 70.0 kg
[~2017-02-25 09:35] MED LIST changes: -FENTANYL CITRATE INJ 50 MCG/1 ML 2 ML VIAL ONE; -LIDOCAINE HCL 2% 2 ML VIAL (20MG/ML) ONE; -MIDAZOLAM HCL 1 MG/ML 2ML VIAL ONE; -ONDA4TAB10 SL; -OXYC1TAB3 PO; -PROPOFOL IV EMULSION 10 MG/ML 20 ML VIAL IV ONE; -SODIUM CHLORIDE 0.9% 500ML 500 ML IV ONE
[2017-02-25 09:40] VITALS: Ht 165.1 cm; Wt 70.0 kg
[2017-02-25] MEDS ORDERED: MoRPHine SULFATE 10 MG/ML CARP/VIAL IV STA ×3 (10:03→13:08)
[2017-02-25] MEDS ORDERED: ONDANSETRON INJ 2 MG/ML 2 ML VIAL IV STA (10:03)
--- NOTE | 2017-02-25 11:06 | DIAGNOSTIC IMAGING REPORT ---
CT SCAN OF THE CERVICAL SPINE CLINICAL HISTORY: Fall with neck pain. COMPARISON STUDY: No priors. TECHNIQUE: CT scan of the cervical spine is performed from the skull base to the upper thoracic spine. Images are reviewed in the axial, sagittal, and coronal planes. IV contrast was not administered for this examination. A dose lowering technique was utilized adhering to the principles of ALARA. CT DOSE: 229.66 mGy.cm FINDINGS: Skeletal structures: The skeletal structures are well mineralized. There is no evidence of fracture or subluxation involving the cervical spine. Vertebral body height and alignment are maintained. The odontoid process and lateral masses are intact. The atlantoaxial articulation is preserved noting mild productive degenerative change. The spinous processes appear intact. Intervertebral discs: Mild disc space narrowing seen at C5-C6. The remaining disc spaces are well maintained. Central canal: A posterior disc osteophyte complex at C5-C6 may contribute to mild acquired compromise of the central canal. Soft tissues: The prevertebral and paraspinous soft tissues are within normal limits. Cerumen is noted in the left external auditory canal. Subcutaneous soft tissue edema is noted in the dorsal aspect of the neck. Calvarium: The visualized calvarium at the skull base appears intact. Brain parenchyma: Right temporal lobe encephalomalacia is suggested. Sinuses and mastoids: The visualized paranasal sinuses are clear. The mastoid air cells are well pneumatized. Lung apices: Clear as visualized. IMPRESSION: 1. There is no evidence of fracture or subluxation involving the cervical spine. 2. Subcutaneous edema is suggested in the dorsal soft tissues. 3. Right temporal lobe encephalomalacia is suggested and only partially visualized. This is likely related to a remote insult. Correlation with the patient's medical history will be required. Electronically signed by: Jb Rajput M.D. 02/25/2017 11:05 AM Dictated Date/Time: 02/25/2017 11:01 AM
--- NOTE | 2017-02-25 11:43 | DIAGNOSTIC IMAGING REPORT ---
R HIP UNILATERAL 2 VIEWS CLINICAL HISTORY: fall; R hip pain trauma. Pain. COMPARISON: None. DISCUSSION: The bones and joint spaces appear intact. There is no evidence of fracture, dislocation or bony disease. Mild degenerative change. No evidence for acetabular protrusion. IMPRESSION: Mild degenerative change. No acute process. The above report was generated using voice recognition software. It may contain grammatical, syntax or spelling errors. Electronically signed by: Dlae Hanson M.D. 02/25/2017 11:41 AM Dictated Date/Time: 02/25/2017 11:40 AM
--- NOTE | 2017-02-25 11:48 | DIAGNOSTIC IMAGING REPORT ---
R ELBOW MIN 3 VIEWS ROUTINE, R SHOULDER MIN 2 VIEWS ROUTINE HISTORY: 41 years-old Male fall; R elbow pain acute right shoulder and elbow pain status post fall COMPARISON: Chest radiograph 10/24/2016 TECHNIQUE: 3 views of the right elbow and 3 views of the right shoulder FINDINGS: ELBOW: Intravenous catheter is noted within the region of the antecubital fossa. There is no acute fracture, dislocation or significant degenerative changes. No elbow joint effusion identified. Radial head appears intact. SHOULDER: There is anteroinferior dislocation of the humeral head in relation to glenoid fossa is present within a subcoracoid location. Corticated 9 x 4 mm bone fragment is noted adjacent to the posterior superior glenoid. No definite acute fracture identified. IMPRESSION: 1. Anteroinferior dislocation of the right humeral head without definite acute shoulder fracture identified. Follow-up radiograph after reduction recommended. 2. 9 x 4 mm corticated bone fragment adjacent to the posterior superior glenoid suggests accessory ossicle or remote fracture fragment. 3. No acute fracture or dislocation of the right elbow. The above report was generated using voice recognition software. It may contain grammatical, syntax or spelling errors. Electronically signed by: Tonny Kumari M.D. 02/25/2017 11:46 AM Dictated Date/Time: 02/25/2017 11:42 AM
[2017-02-25] MEDS ORDERED: ONDANSETRON INJ 2 MG/ML 2 ML VIAL ONE (12:49)
[2017-02-25] MEDS ORDERED: NURSING VERBAL MED ORDER ONE (13:00)
[2017-02-25] MEDS ORDERED: PROPOFOL IV EMULSION 10 MG/ML 20 ML VIAL IV STA ×2 (14:12→14:41)
[2017-02-25 14:17] VITALS: BP 153/100; PULSE 97; O2SAT 100
--- NOTE | 2017-02-25 14:30 | EMERGENCY ROOM VISIT NOTE ---
Pre-Mod Sedation Assessment General Date of Moderate Sedation: Feb 25, 2017. Vital Signs: Vital Signs Past 12 Hours Date Time Temp Pulse Resp B/P (MAP) Pulse Ox O2 Delivery O2 Flow Rate FiO2 02/25/17 14:17 97 16 153/100 100 Nasal Cannula 2.0 02/25/17 13:10 98 12 96 02/25/17 13:05 23 02/25/17 13:00 15 02/25/17 12:55 107 25 02/25/17 12:50 102 16 02/25/17 12:49 97 02/25/17 12:14 87 16 149/91 99 Room Air 02/25/17 11:38 86 16 173/105 97 Room Air 02/25/17 09:40 37.3 95 18 175/99 99 Room Air Review Cardiovascular: regular rate, rhythm Abdomen: normal bowel sounds Lungs: lungs clear, normal breath sounds Airway Class: I Pre-Sedation Airway Assessment Oral Cavity: WNL Short Thick Neck: No Hx of Sleep Apnea: No Smoking Status: Never Smoker Mallampati Classification: Class I ASA Classification: Class I Notes The planned sedation has been discussed with the patient and consent obtained. I have identified the patient, determined the appropriateness of sedation and have assessed the patient immediately prior to the procedure. All medicine(s) and interventions are by my order.
[2017-02-25 14:33] VITALS: BP 156/108; PULSE 80; O2SAT 100
--- NOTE | 2017-02-25 14:49 | EMERGENCY ROOM VISIT NOTE ---
ED Visit Note First contact with patient: 09:44 41-year-old male who fell out of a tree stand injuring his right shoulder was fully evaluated by Goldy Lopez PA-C. Please see his note. Patient had multiple other possible injuries multiple imaging was performed. The patient was found to have a right shoulder dislocation. The patient did require reduction. Initial attempts at reducing the shoulder with morphine was unsuccessful. The patient remained awake and alert the entire time. We also attempted to reduce the shoulder using weights while the patient was on his abdomen. That also was unsuccessful. Conscious sedation was therefore indicated. The patient had a pre-sedation exam. Indication shoulder dislocation Total time: 11 minutes. Written consent was obtained after the risks and benefits were explained to the patient, including, but not limited to aspiration, allergic reaction, breathing difficulties, cardiac complications, vomiting, pain, event recall, bleeding, and /or infection. Pre-sedation examination and paperwork completed. The patient was on 100% oxygen via NRB prior to the procedure. Continous end tidal CO2 monitoring, pulse oximetry, and cardiac monitoring were utilized. Suction, airway equipment, medications, respiratory equipment, and appropriate personnel were prepared prior to the initiation of the procedure. A time out was taken. Sedation was achieved utilizing increments of propofol. After I observed the patient had reached the appropriate level of sedation the main procedure was performed without complication. Sedation was discontinued and the monitoring continued. The patient recovered quickly from the effects of the medication without complication or adverse event. Goldy Lopez performed the reduction while I monitored the conscious sedation. The shoulder was put back in place. The patient had no complications. Follow- up x-ray was obtained.
[2017-02-25 14:59] VITALS: BP 150/103; PULSE 100; TEMP 36.6; O2SAT 99
--- NOTE | 2017-02-25 15:05 | DIAGNOSTIC IMAGING REPORT ---
R SHOULDER MIN 2 VIEWS ROUTINE HISTORY: 41 years-old Male post reduction status post reduction of the right shoulder COMPARISON: Right shoulder radiographs 02/25/2017 at 11:23 AM TECHNIQUE: 2 views of the right shoulder were obtained status post reduction FINDINGS: There is an acute cortical impaction fracture of the posterior aspect greater tuberosity compatible with Hill Sachs deformity. No evidence of associated bony Bankart deformity at this time. 9 x 4 mm corticated bone fragment is again seen adjacent to the superior glenoid suggesting accessory ossicle or remote fracture fragment. Mild soft tissue swelling seen about the right shoulder. There is improved alignment status post reduction. IMPRESSION: 1. Satisfactory alignment status post reduction. 2. 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 The above report was generated using voice recognition software. It may contain grammatical, syntax or spelling errors. Electronically signed by: Tonny Kumari M.D. 02/25/2017 3:04 PM Dictated Date/Time: 02/25/2017 3:01 PM
[2017-02-25 15:56] VITALS: BP 142/91; PULSE 101; O2SAT 96
--- NOTE | 2017-02-25 18:37 | EMERGENCY ROOM VISIT NOTE ---
ED Visit Note First contact with patient: 09:44 Chief Complaint: I fell and injured my right shoulder. History of Present Illness: Mr. Benjamin is a 41-year-old white male who is brought into the ED via ambulance accompanied by his . Patient reports approximately an hour before he arrived in the emergency department he was in a tree stand approximately 15 feet above the ground. He reports he was moving in the tree stand and fell out onto the right side of his body. He reports at the time of the injury he did not strike his head or have a loss of consciousness and since the injury he has not having any signs of head injury. EMS was activated and medical was given by Dr. Chavarria and he received a total of 100 g of fentanyl IV, 6 mg of morphine IV and 4 mg of Zofran IV during transport. Currently patient is complaining of right shoulder pain, right elbow pain, right hip pain and neck pain. He reports the worst of the symptoms are his right shoulder pain. He places this discomfort over the glenohumeral joint. He describes it as a severe deep achiness sensation. He rates his discomfort 8/10. His pain is nonradiating. His pain worsens with all times to move the shoulder, palpation of the humeral head. He does report the medication he received in the ambulance took a lot of his pain away. He denies any associated symptoms including previous significant injuries, upper extremity weakness/numbness/tingling. Additionally complains of lateral right elbow pain over the humeral epicondylar area. He describes this as a mild achy sensation and rates his discomfort 4/ 10. His pain is nonradiating. His pain worsens been only with palpation. He has not identified any alleviating factors related to the pain. Additionally he complains of right hip pain over the greater trochanter. Once again he describes this as a mild achiness sensation and rates his discomfort 4/ 10. The pain is nonradiating. The pain worsens minimally with palpation. He denies any associated lower leg weakness/numbness/tingling. Lastly he complains of neck pain only during my review of symptoms. He is not able to place his discomfort but says its generally throughout the entire neck. He rates his discomfort as a 2 sensation. He also read reports this as an achy sensation. He denies headache, dizziness, lightheadedness, abnormal neurological symptoms, chest pain, shortness of breath, abdominal pain, nausea, vomiting. Review of Systems: As noted above in history of present illness. All body systems were reviewed and found to be negative as noted above. Past Medical History: Patient denies. Current Medications: Patient denies. Allergies to Medications: Patient denies. Social History: Patient is currently employed; he lives with his and feels safe in his home environment; he denies tobacco and alcohol use. Physical Examination: Vital Signs: Date Time Temp Pulse Resp B/P (MAP) Pulse Ox O2 Delivery O2 Flow Rate FiO2 02/25/17 15:56 101 18 142/91 96 02/25/17 15:18 97 18 136/95 98 02/25/17 14:59 36.6 100 17 150/103 99 Room Air 02/25/17 14:45 68 16 149/98 100 Nasal Cannula 2.0 02/25/17 14:40 80 20 160/106 100 Nasal Cannula 2.0 02/25/17 14:35 83 15 100 Nasal Cannula 2.0 02/25/17 14:33 80 16 156/108 100 Nasal Cannula 2.0 02/25/17 14:30 87 16 156/108 99 Nasal Cannula 2.0 02/25/17 14:25 81 14 175/114 100 Nasal Cannula 2.0 02/25/17 14:17 97 16 153/100 100 Nasal Cannula 2.0 02/25/17 14:10 96 16 97 02/25/17 13:10 98 12 96 02/25/17 13:05 23 02/25/17 13:00 15 02/25/17 12:55 107 25 02/25/17 12:50 102 16 02/25/17 12:49 97 02/25/17 12:14 87 16 149/91 99 Room Air 02/25/17 11:38 86 16 173/105 97 Room Air 02/25/17 09:40 37.3 95 18 175/99 99 Room Air GENERAL: 41-year-old male in mild to moderate distress due to pain, nontoxic- appearing, afebrile and hemodynamically stable. NEUROLOGICAL: Awake, alert and oriented to person, place and time. Answering questions appropriately and following commands. Radial nerves II through XII grossly intact. Good short-term and long-term recall. SKIN: Warm, dry and pink. No soft tissue trauma noted. HEENT: Atraumatic and normocephalic. Skull: Bony deformity, bony crepitus, swelling or ecchymosis. No raccoon's eyes or manning signs. No drainage in the ears of the nostril; no hemotympanum. Face: No bony tenderness, swelling or ecchymosis. PERRLA. EOMI without nystagmus. No malocclusion. No intraoral trauma. Airway patent. Speech is normal and clear. Trachea midline. No jugular venous distention. BACK: No tenderness over the bony cervical or thoracic spine. No tenderness throughout the paraspinous muscles and no muscle spasm. Full range of motion of the cervical spine. No CVA tenderness. THORAX: Lungs sounds are clear to auscultation and equal bilaterally with symmetrical chest wall. No crepitus, tenderness, subcutaneous air or deformities noted. ABDOMEN: Flat, soft and nontender. Positive bowel sounds in all quadrants. No guarding, rigidity or organomegaly. PELVIS: Stable and nontender to compression and rock. RIGHT UPPER EXTREMITY: Deformity noting at the glenoid humeral joint. Minimal tenderness over the acromioclavicular joint without deformity. No tenderness over the sternoclavicular joint. No tenderness over the scapula. No tenderness over the mid to distal humerus. Decreased range of motion due to deformity at the shoulder in all directions. No tenderness in the elbow, forearm, wrist or hand. With the shoulder stabilize she has full range of motion in flexion and extension of the elbow, pronation and supination of forearm and flexion, extension and radial and ulnar deviation of the wrist. Throughout the lower portion of the extremity is skin was warm and pink and capillary refill was brisk. Distal pulses were intact. He is able to distinguish light sensations through all dermatomes. RIGHT LOWER EXTREMITY: No gross bony deformity. No shortening or malrotation. Mild tenderness over the greater trochanter without bony deformity or crepitus. No tenderness throughout the thigh, knee, lower leg or ankle. Throughout the lower leg the skin was warm and pink and capillary refill is brisk. Distal pulses were intact. His sensation was intact to light touch. ED Course: Patient is assessed as noted above. Patient's medication list was reviewed. CT Cervical Spine: Was reviewed by myself and read by the radiologist and shows no acute fractures or dislocations. Right Shoulder X-Rays: Were read by myself and the radiologist showing an anterior inferior dislocation of the right humeral head without definitive fracture, 9 x 4 mm corticated bony fragment adjacent to the posterior superior glenoid of questionable etiology. Right Elbow X-Rays: Were read by myself and the radiologist showing no acute fractures or dislocations. No displacement of the anterior posterior fat pads. Right Hip X-Rays: Were read by myself and the radiologist showing no acute fractures or dislocations. Radiologist does note mild degenerative changes. Postreduction Right Shoulder X-Rays: Were read by myself and the radiologist showing improved alignment of the dislocations and an acute Hill-Sachs deformity of the humeral head. Radiologist does note that the 9 x 4 mm corticated mask is again seen and is suggestive of in excess re-ossicle. During the patient's stay in the emergency department he received a total of 22 mg of morphine IV for pain and 8 mg of Zofran IV. Multiple attempts and different techniques were used to reduce the patient's dislocation by Dr. Chavarria and myself. Conscious sedation was used with propofol all and the dislocation was reduced; please see Dr. hCavarria's notes and orders. Patient was placed in a shoulder immobilizer. A she was educated about today's findings and instructed on his treatment plan; he verbalized understanding and agreement with this plan. Clinical Impression: Right shoulder dislocation with Hill-Sachs deformity. Status post fall. Cervical spine pain. Right elbow pain. Right hip pain. Disposition: Patient discharged home in stable condition accompanied by his ; prior to departure he was reassessed and subjectively reported he was feeling much better and rated his discomfort 2/10. Plan: Comfort measures were discussed with the patient including use of ibuprofen, rest, ice and shoulder immobilizer. Patient was encouraged to follow-up with Dr. Whalen, [facility], for definitive care and treatment. Patient is encouraged return ED for worsening/uncontrolled pain, recurrence of his dislocation, upper extremity weakness/numbness/tingling or any new/ concerning symptoms.
== END 2017-02-25 16:10 | disposition home or self-care (01) ==
LOC: EDBD 09:35 → C.EDB 09:36
DX: S43.014A Anterior dislocation of right humerus, initial encounter (principal); S43.034A Inferior dislocation of right humerus, initial encounter; W17.89XA Other fall from one level to another, initial encounter; M21.921 Unspecified acquired deformity of right upper arm